=== PATIENT | female | born 1985 | race Caucasian/White ===

== ENCOUNTER → 2018-08-26 12:16 | Outpatient (CLI) | payer OTHER, SELFPAY ==
[2018-08-19 09:09] VITALS: BMI 24.4
--- NOTE | 2018-08-26 12:29 | US_ITS ---
STUDY: THYROID ULTRASOUND REASON FOR EXAM: Female, 33 years old. Thyroid disorder TECHNIQUE: Ultrasound evaluation of the thyroid was performed with real-time and static dasilva-scale imaging. COMPARISON: None. FINDINGS: RIGHT LOBE: The right lobe of the thyroid gland measures 4.9 x 1.9 x 1.4 cm. There is a heterogeneous echotexture. There are tiny hypoechoic to isoechoic nodules of the right thyroid lobe measuring up to 6 mm. LEFT LOBE: The left lobe of the thyroid gland measures 4.3 x 1.4 x 1.2 cm. There is a heterogeneous echotexture. 5 mm isoechoic nodule in the deep left thyroid lobe is noted. ISTHMUS: The isthmus measures 4 mm. The regional lymph nodes are normal. US/Thyroid IMPRESSION: 1. Heterogeneous thyroid parenchyma could suggest sequela of thyroiditis. 2. Small bilateral thyroid nodules measuring up to 6 mm without suspicious sonographic features. Electronically Signed: Silas Roman MD at 8:04 EST , Service support ,
[2018-08-30 08:41] LABS: T3 Reverse 24.2 ng/dL (9.2-24.1); Thyroid Peroxidase AB 304 IU/mL (0-34)
== END ==
PROVIDERS: Family Provider Internal Medicine; PCP Internal Medicine; Referring Provider Internal Medicine; Visit Provider Internal Medicine
DX: E06.3 Autoimmune thyroiditis (principal)
CPT/HCPCS: 36415; 76536; 84439; 84443; 84482; 86376